=== PATIENT | female | born 1965 | race Caucasian/White ===

== ENCOUNTER → 2019-03-29 | Day surgery (SDC) | payer MEDICAID, OTHER ==
[~2019-03-29] MED LIST: CLONAZEPAM1 MG PO; IV RINGERS,LACTATED 1000ML 1,000 ML IV ONE
--- NOTE | 2019-03-29 13:09 | PDOC4 ---
PROCEDURE Procedure Colonoscopy Indication: screening, average risk Meds: per anesthesia Findings: ADRIEN normal --'Scope advanced to cecum.. Prep fair. Mucosa normal. No polyps, diverticula. Normal retroflex. Komal. well. IMP: Negative screen w/in prep. REC: Repeat exam in 10 years. November f/u with me prn. NASIM JAY MD Mar 29, 2019 13:09
[2019-03-29 13:23] VITALS: BP 132/66
== END | disposition home or self-care (01) ==
LOC: SURG 12:09
PROVIDERS: ATTEND Internal Medicine Gastroenterology
DX: Z12.11 Encounter for screening for malignant neoplasm of colon (principal); K63.89 Other specified diseases of intestine; K21.9 Gastro-esophageal reflux disease without esophagitis; F41.9 Anxiety disorder, unspecified; F32.9 Major depressive disorder, single episode, unspecified; Z98.890 Other specified postprocedural states
CPT/HCPCS: 45378